=== PATIENT | female | born 1935 | race Caucasian/White ===

== ENCOUNTER 2016-08-17 13:02 | Emergency (ER) | payer MEDICARE ==
--- NOTE | 2016-08-17 13:52 | Emergency Department Report ---
Chief Complaint: Extremity Problem,Nontraumatic Stated Complaint: SENT BY PHYSICIAN/RT LEG SWELLING/POSS DVT Time Seen by Provider: 08/17/16 13:50 - HPI History of Present Illness: post op ill appearing sluggish elderly female sent by pcp ro dvt rle had been off plavix total about 7 d on for hx cva minimal swelling rle concern for ? fx from fall poor informant given dementia to er for eval - Exam Vital Signs: Vital Signs 08/17/16 13:42 Temperature 98.4 F Pulse Rate 88 Respiratory 16 Rate Blood Pressure 113/67 O2 Sat by Pulse 97 Oximetry MSE screening note: Focused history and physical exam performed. Due to findings the following was ordered: ED Disposition for MSE Condition: Stable
[2016-08-17 14:22] LABS: Hematocrit 30.2 % (30.3-42.9); Hemoglobin 9.8 gm/dl (10.1-14.3); Mean Corpuscular HGB Conc 33 % (30-34); Mean Corpuscular Hemoglobin 27 pg (28-32); Mean Corpuscular Volume 83 fl (79-97); Platelet Count 338 K/mm3 (140-440); Red Blood Count 3.63 M/mm3 (3.65-5.03); Red Cell Distribution Width 13.7 % (13.2-15.2); White Blood Count 10.6 K/mm3 (4.5-11.0)
[2016-08-17 14:32] LABS: INR 1.08 (0.87-1.13)
[2016-08-17 14:33] LABS: Partial Thromboplastin Time 30.4 Sec. (24.2-36.6)
--- NOTE | 2016-08-17 14:36 | XRay Report ---
Right foot and ankle 3 views: History: Pain right foot and ankle. Findings: Generalized osteopenia. Arthritic changes in the first tarsometatarsal and metatarsophalangeal joint. No periosteal reaction. No lytic lesion or evidence of fracture. Incidentally noted spur at the anteroinferior aspect of the calcaneum. Tiny spur at the posterior superior aspect of calcaneum. Arthritic changes at the talotibial joint and the subtalar joint. This is more pronounced at talofibular joint. 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
--- NOTE | 2016-08-17 14:39 | Emergency Department Report ---
ED Extremity Problem HPI - General Chief complaint: Extremity Problem,Nontraumatic Stated complaint: SENT BY PHYSICIAN/RT LEG SWELLING/POSS DVT Time Seen by Provider: 08/17/16 14:37 Source: patient, family Mode of arrival: Wheelchair Limitations: Language Barrier - History of Present Illness MD Complaint: extremity pain, extremity swelling -: Gradual Location: right, lower extremity History of Same: Yes -: Yes myalgia, Yes arthralgia Radiation: none Severity scale (0 -10): 2 Consistency: constant Improves with: nothing Worsens with: nothing Associated Symptoms: denies: chest pain, shortness of breath, fever, myalgias, arthralgias - Related Data Home Medications Medication Instructions Recorded Confirmed Last Taken ALBUTEROL Inhaler [ProAir HFA 2 puff IH QID PRN 08/05/16 08/05/16 Unknown Inhaler] Alendronate Sodium [Fosamax] 70 mg PO QWEEK 08/05/16 08/05/16 Unknown Atorvastatin Calcium [Lipitor] 20 mg PO QHS 08/05/16 08/05/16 Unknown Clopidogrel [Plavix] 75 mg PO QDAY 08/05/16 08/05/16 Unknown Memantine HCl [Namenda Xr] 28 mg PO QDAY 08/05/16 08/05/16 Unknown Montelukast [Singulair] 10 mg PO QPM 08/05/16 08/05/16 Unknown Omeprazole Magnesium [PriLOSEC Otc] 20 mg PO QDAY 08/05/16 08/05/16 Unknown Vit W-Ca,Fe,FA(<1 mg) 1 each PO QDAY 08/05/16 08/05/16 Unknown [ Vitamins] QUEtiapine [SEROquel] 50 mg PO QHS 08/05/16 08/05/16 Unknown Rivastigmine [Exelon] 9.5 mg TD QDAY 08/05/16 08/05/16 Unknown Allergies Allergy/AdvReac Type Severity Reaction Status Date / Time aspirin Allergy Unknown Verified 08/05/16 10:33 iodine Allergy Unknown Verified 08/05/16 10:33 Penicillins Allergy Unknown Verified 08/05/16 10:33 ED Review of Systems ROS: Stated complaint: SENT BY PHYSICIAN/RT LEG SWELLING/POSS DVT Other details as noted in HPI Comment: All other systems reviewed and negative ED Past Medical Hx - Past Medical History Hx Hypertension: Yes (patient has had some strokes - on Clopidigrel; ) Hx Asthma: Yes (uses inhaler) Hx Dementia: Yes - Surgical History Hx Cholecystectomy: Yes Additional Surgical History: Left wrist, Hysterectomy, knee sx - Social History Smoking Status: Never Smoker Substance Use Type: None - Medications Home Medications: Home Medications Medication Instructions Recorded Confirmed Last Taken Type ALBUTEROL Inhaler [ProAir HFA 2 puff IH QID PRN 08/05/16 08/05/16 Unknown History Inhaler] Alendronate Sodium [Fosamax] 70 mg PO QWEEK 08/05/16 08/05/16 Unknown History Atorvastatin Calcium [Lipitor] 20 mg PO QHS 08/05/16 08/05/16 Unknown History Clopidogrel [Plavix] 75 mg PO QDAY 08/05/16 08/05/16 Unknown History Memantine HCl [Namenda Xr] 28 mg PO QDAY 08/05/16 08/05/16 Unknown History Montelukast [Singulair] 10 mg PO QPM 08/05/16 08/05/16 Unknown History Omeprazole Magnesium [PriLOSEC Otc] 20 mg PO QDAY 08/05/16 08/05/16 Unknown History Vit W-Ca,Fe,FA(<1 mg) 1 each PO QDAY 08/05/16 08/05/16 Unknown History [ Vitamins] QUEtiapine [SEROquel] 50 mg PO QHS 08/05/16 08/05/16 Unknown History Rivastigmine [Exelon] 9.5 mg TD QDAY 08/05/16 08/05/16 Unknown History ED Physical Exam - General Limitations: Language Barrier General appearance: alert, in no apparent distress - Head Head exam: Present: atraumatic, normocephalic - Eye Eye exam: Present: normal appearance - ENT ENT exam: Present: mucous membranes moist - Neck Neck exam: Present: normal inspection - Respiratory Respiratory exam: Present: normal lung sounds bilaterally. Absent: respiratory distress - Cardiovascular Cardiovascular Exam: Present: regular rate, normal rhythm. Absent: systolic murmur, diastolic murmur, rubs, gallop - GI/Abdominal GI/Abdominal exam: Present: soft, normal bowel sounds - Extremities Exam Extremities exam: Present: full ROM, tenderness (right ankle and right foot, no calf tenderness). Absent: normal capillary refill, pedal edema, joint swelling , calf tenderness - Back Exam Back exam: Present: normal inspection - Neurological Exam Neurological exam: Present: alert, oriented X3 - Psychiatric Psychiatric exam: Present: normal affect, normal mood - Skin Skin exam: Present: warm, dry, intact, normal color. Absent: rash ED Course Vital Signs 08/17/16 08/17/16 13:42 15:44 Temperature 98.4 F Pulse Rate 88 Respiratory 16 16 Rate Blood Pressure 113/67 O2 Sat by Pulse 97 100 Oximetry ED Medical Decision Making - Lab Data Result diagrams: 08/17/16 14:11 08/17/16 14:11 - Radiology Data Radiology results: report reviewed, image reviewed - Medical Decision Making patient doing well, mild edema on right hand s/p external fixation , no evidence of any trauma , likely because of gravity, negative xray and us for dvt in right lower extremity / right foot, head ct negative after she began c/o headache , will dc and follow up with her PCP. Critical care attestation.: If time is entered above; I have spent that time in minutes in the direct care of this critically ill patient, excluding procedure time. ED Disposition Clinical Impression: Dementia, Open Colles' fracture of left radius, Foot sprain Disposition: DISCHARGED TO HOME OR SELFCARE Is pt being admited?: No Does the pt Need Aspirin: No Condition: Good Instructions: Foot Contusion (ED), Contusion in Adults (ED) Time of Disposition: 16:29
[2016-08-17 14:43] LABS: Alanine Aminotransferase 74 units/L (7-56); Albumin 2.8 g/dL (3.9-5); Albumin/Globulin Ratio 0.8 %; Alkaline Phosphatase 160 units/L (35-129); Anion Gap 17 mmol/L; BUN/Creatinine Ratio 23.33; Blood Urea Nitrogen 14 mg/dL (7-17); Calcium 9.3 mg/dL (8.4-10.2); Carbon Dioxide 22 mmol/L (22-30); Chloride 103.2 mmol/L (98-107); Glucose 112 mg/dL (65-100); Potassium 3.8 mmol/L (3.6-5.0); Sodium 138 mmol/L (137-145); Total Protein 6.2 g/dL (6.3-8.2)
--- NOTE | 2016-08-17 15:10 | Cat Scan Report ---
CT HEAD WITHOUT CONTRAST INDICATION: Headache. COMPARISON: 08/05/2016. FINDINGS: Noncontrast head CT demonstrates stable, age-appropriate ventricles and sulci with mild to moderate periventricular and few white matter hypodense small vessel ischemic disease. No definite acute infarct, hemorrhage, mass effect or midline shift. No abnormal extra axial fluid collections. Normal posterior fossa with preserved basilar cisterns. Bilateral cataract surgery. Hypoplastic/aplastic bilateral frontal sinuses. Clear remainder imaged paranasal sinuses and mastoid air cells. Atherosclerotic internal carotid artery calcifications. Normal calvarium and scalp. Numerous radiopaque dental material. CONCLUSION: No acute intracranial CT abnormality or significant interval change with findings, as above. Thank you for the opportunity to participate in this patient's care.
[2016-08-17 18:02] VITALS: BP 145/83
--- NOTE | 2016-08-18 07:55 | Vascular Lab Report ---
Right Lower Extremity Venous Duplex Study: Reason for Exam: Right leg swelling. Comments on the Right: All veins visualized are freely compressible without evidence of internal echogenicity. Flow is spontaneous and phasic throughout. No evidence of acute or chronic thrombus is seen in any of the vessels visualized. Comments on the Left: A limited duplex study was done of the proximal veins of the left lower extremity. All veins visualized are freely compressible without evidence of internal echogenicity. Flow is spontaneous and phasic throughout. No evidence of acute or chronic thrombus is seen in any of the vessels visualized. Impression: No evidence of acute or chronic deep venous thrombosis in the right lower extremity.
--- NOTE | 2016-08-18 12:11 | XRay Report ---
RIGHT ANKLE, 3 views: History: Right ankle pain. Findings: Osteopenia. Mild soft tissue swelling is identified. No acute osseous abnormality or joint pathology is identified. Mild to moderate osteoarthritic changes are identified. The fifth metatarsal base is intact. Impression: Soft tissue swelling. Osteopenia. Degenerative changes.
== END 2016-08-17 18:02 | disposition home or self-care (01) ==
LOC: ED 13:02
DX: S52.532B Colles' fracture of left radius, initial encounter for open fracture type I or II (principal); I10 Essential (primary) hypertension; J45.909 Unspecified asthma, uncomplicated; F03.90 Unspecified dementia, unspecified severity, without behavioral disturbance, psychotic disturbance, mood disturbance, and anxiety; S93.602A Unspecified sprain of left foot, initial encounter; X58.XXXA Exposure to other specified factors, initial encounter; Y93.9 Activity, unspecified; Y92.9 Unspecified place or not applicable; Y99.9 Unspecified external cause status
CPT/HCPCS: 36415; 70450; 80053; 85025; 85610; 85730; 99284